=== PATIENT | female | born 1995 | race Hispanic/Latino ===

== ENCOUNTER 2022-12-24 08:50 | Emergency (ER) | payer OTHER, SELFPAY ==
--- NOTE | ~2022-12-24 | XR_ITS ---
EXAMINATION: XR hand RT min 3V INDICATION: Right hand pain TECHNIQUE: Three views of the right hand are obtained. COMPARISON: None available FINDINGS: Bone alignment is normal. There is no fracture. The joint spaces are normal. There is soft tissue swelling of the hand. IMPRESSION: 1. Soft tissue swelling of the hand without acute osseous abnormality. Reviewed, dictated and finalized at location A.
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
[2022-12-24 09:02] VITALS: BP 126/73; PULSE 92; RESP 16; TEMP 37.1; O2SAT 98
== END 2022-12-24 09:28 | disposition home or self-care (01) ==
PROVIDERS: Emergency Provider Nurse Practitioner Family
DX: S63.91XA Sprain of unspecified part of right wrist and hand, initial encounter (principal); S66.911A Strain of unspecified muscle, fascia and tendon at wrist and hand level, right hand, initial encounter; W19.XXXA Unspecified fall, initial encounter
CPT/HCPCS: 73130; 99203; G0463

== ENCOUNTER 2023-08-17 09:32 | Outpatient (CLI) | payer OTHER, SELFPAY ==
[2023-08-17 11:47] LABS: Hematocrit 45.5 % (37.0-47.0); Hemoglobin 14.6 g/dL (12.0-15.0); Mean Corpuscular HGB Conc 32.1 g/dl (32-36); Mean Corpuscular Hemoglobin 27.1 pg (26-34); Mean Corpuscular Volume 84.6 fl (80-100); Mean Platelet Volume 9.8 fl (7.4-10.4); Platelet Count Result 428 k/mm3 (150-375); Red Blood Count 5.38 M/mm3 (4.2-5.4); Red Cell Distribution Width 13.6 % (11.5-14.5); White Blood Count 8.5 K/mm3 (4.5-10.0)
[2023-08-17 11:58] LABS: Alanine Aminotransferase 53 U/L (6-35); Albumin Level 4.1 g/dL (3.5-5.1); Alkaline Phosphatase 68 U/L (38-126); Anion Gap 4 mmol/L (8-16); Aspartate Amino Transferase 59 U/L (14-36); Bilirubin,Total 0.9 mg/dL (0.2-1.3); Blood Urea Nitrogen 12 mg/dL (7-17); Calcium 9.2 mg/dL (8.4-10.2); Carbon Dioxide 28 mmol/L (22-30); Chloride 105 mmol/L (98-107); Cholesterol 208 mg/dL (0-200); Estimated Glomerular Filt Rate > 60; Glucose 92 mg/dL (65-110); HDL Direct 43 mg/dL; Potassium 4.1 mmol/L (3.4-5.0); Sodium 137 mmol/L (137-145); Triglycerides 117 mg/dL (<150)
[2023-08-17 12:09] LABS: LDL Cholesterol Direct 138 mg/dL
[2023-08-17 12:25] LABS: Hemoglobin A1C 5.3 % (<5.7)
== END 2023-08-17 09:33 | disposition home or self-care (01) ==
LOC: ANHGOSHLAB 09:33
PROVIDERS: PCP Family Medicine; Visit Provider Family Medicine
DX: E28.2 Polycystic ovarian syndrome (principal); R73.09 Other abnormal glucose; E66.9 Obesity, unspecified; Z79.899 Other long term (current) drug therapy
CPT/HCPCS: 36415; 80053; 80061; 83036; 84443; 85027

== ENCOUNTER 2024-02-22 09:47 | Outpatient (CLI) | payer OTHER, SELFPAY ==
[2024-02-22 19:39] LABS: Cholesterol 186 mg/dL (0-200); HDL Direct 43 mg/dL; Triglycerides 112 mg/dL (<150)
[2024-02-22 19:49] LABS: Alanine Aminotransferase 29 U/L (6-35); Albumin Level 4.1 g/dL (3.5-5.1); Alkaline Phosphatase 69 U/L (38-126); Anion Gap 11 mmol/L (4-12); Aspartate Amino Transferase 39 U/L (14-36); Bilirubin,Total 0.6 mg/dL (0.2-1.3); Blood Urea Nitrogen 10 mg/dL (7-17); Carbon Dioxide 24 mmol/L (22-30); Chloride 102 mmol/L (98-107); Estimated Glomerular Filt Rate > 60; Glucose 84 mg/dL (65-110); Potassium 3.8 mmol/L (3.4-5.0); Sodium 137 mmol/L (137-145)
[2024-02-22 19:51] LABS: LDL Cholesterol Direct 114 mg/dL
[2024-02-25 08:15] LABS: DHEA-Sulfate 127 mcg/dL (14-349); Prolactin 11.8 ng/mL
[2024-03-01 07:21] LABS: Testosterone Total 38
[2024-03-15 07:52] LABS: Free Insulin 14.5
== END 2024-02-22 09:48 | disposition home or self-care (01) ==
PROVIDERS: Nurse Practitioner; PCP Family Medicine; Visit Provider Internal Medicine Endocrinology, Diabetes & Metabolism
DX: E78.5 Hyperlipidemia, unspecified (principal); E28.2 Polycystic ovarian syndrome; R74.8 Abnormal levels of other serum enzymes; N92.6 Irregular menstruation, unspecified; E66.9 Obesity, unspecified; Z13.1 Encounter for screening for diabetes mellitus; Z83.3 Family history of diabetes mellitus
CPT/HCPCS: 36415; 80053; 80061; 82627; 83036; 83498; 83527; 84146; 84403; 84439; 84443

== ENCOUNTER 2024-02-28 15:15 | Outpatient (CLI) | payer OTHER, SELFPAY ==
[2024-03-01 04:07] LABS: Insulin Level Total 44.4 uIU/mL
[2024-03-14 21:47] LABS: Free Insulin 37.6 uIU/mL (1.5-14.9)
== END 2024-02-28 15:16 | disposition home or self-care (01) ==
LOC: ANHGOSHLAB 15:17
PROVIDERS: PCP Family Medicine; Visit Provider Internal Medicine Endocrinology, Diabetes & Metabolism
DX: R74.8 Abnormal levels of other serum enzymes (principal); E78.5 Hyperlipidemia, unspecified; E66.9 Obesity, unspecified; E28.2 Polycystic ovarian syndrome; Z13.1 Encounter for screening for diabetes mellitus; Z83.3 Family history of diabetes mellitus
CPT/HCPCS: 36415; 82530; 83525; 83527

== ENCOUNTER 2024-03-01 09:25 | Outpatient (CLI) | payer OTHER, SELFPAY ==
[2024-03-01 13:11] LABS: Hematocrit 43.2 % (37.0-47.0); Hemoglobin 13.7 g/dL (12.0-15.0); Mean Corpuscular HGB Conc 31.7 g/dl (32-36); Mean Corpuscular Hemoglobin 27.5 pg (26-34); Mean Corpuscular Volume 86.7 fl (80-100); Mean Platelet Volume 9.8 fl (7.4-10.4); Platelet Count Result 448 k/mm3 (150-375); Red Blood Count 4.98 M/mm3 (4.2-5.4); Red Cell Distribution Width 14.3 % (11.5-14.5)
[2024-03-01 13:36] LABS: Alanine Aminotransferase 25 U/L (6-35); Albumin Level 4.1 g/dL (3.5-5.1); Alkaline Phosphatase 65 U/L (38-126); Anion Gap 10 mmol/L (4-12); Aspartate Amino Transferase 76 U/L (14-36); Bilirubin,Total 0.6 mg/dL (0.2-1.3); Blood Urea Nitrogen 10 mg/dL (7-17); Calcium 8.9 mg/dL (8.4-10.2); Carbon Dioxide 22 mmol/L (22-30); Chloride 106 mmol/L (98-107); Cholesterol 181 mg/dL (0-200); Estimated Glomerular Filt Rate > 60; Glucose 92 mg/dL (65-110); HDL Direct 42 mg/dL; Potassium 4.1 mmol/L (3.4-5.0); Sodium 138 mmol/L (137-145); Triglycerides 99 mg/dL (<150)
[2024-03-01 13:47] LABS: LDL Cholesterol Direct 113 mg/dL
[2024-03-14 08:16] LABS: Cortisol, Saliva 0.03
[2024-03-14 08:17] LABS: Cortisol, Saliva 0.05
== END 2024-03-01 09:26 | disposition home or self-care (01) ==
LOC: ANHGOSHLAB 09:28
PROVIDERS: Internal Medicine Endocrinology, Diabetes & Metabolism; PCP Family Medicine; Visit Provider Family Medicine
DX: R74.8 Abnormal levels of other serum enzymes (principal); E66.9 Obesity, unspecified; E78.5 Hyperlipidemia, unspecified; R73.09 Other abnormal glucose; Z79.899 Other long term (current) drug therapy
CPT/HCPCS: 36415; 80053; 80061; 82530; 84443; 85027

== ENCOUNTER 2024-03-16 08:43 | Outpatient (CLI) | payer OTHER, SELFPAY ==
[2024-03-16 13:57] LABS: Basophils Absolute Auto 0.1 K/mm3 (0.0-0.1); Eosinophils Absolute Auto 0.2 K/mm3 (0-0.3); Eosinophils Percent Auto 1.7 % (0-4.4); Hematocrit 41.9 % (37.0-47.0); Hemoglobin 13.5 g/dL (12.0-15.0); Immature Granulocyte Absolute 0.03 K/mm3 (0.00-0.031); Immature Granulocyte Percent A 0.3 % (0-0.5); Lymphocytes Percent Auto 40.7 % (18.3-44.2); Mean Corpuscular HGB Conc 32.2 g/dl (32-36); Mean Corpuscular Hemoglobin 27.7 pg (26-34); Mean Corpuscular Volume 85.9 fl (80-100); Mean Platelet Volume 9.8 fl (7.4-10.4); Monocytes Absolute Auto 0.5 K/mm3 (0.1-0.6); Monocytes Percent Auto 5.5 % (2.6-8.5); Neutrophils Absolute Auto 4.5 K/mm3 (1.3-6.7); Neutrophils Percent Auto 50.8 % (45.5-73.1); Platelet Count Result 478 k/mm3 (150-375); Red Blood Count 4.88 M/mm3 (4.2-5.4); White Blood Count 8.8 K/mm3 (4.5-10.0)
[2024-03-16 14:35] LABS: Alanine Aminotransferase 30 U/L (6-35); Albumin Level 4.1 g/dL (3.5-5.1); Alkaline Phosphatase 71 U/L (38-126); Aspartate Amino Transferase 129 U/L (14-36); Bilirubin,Total 0.7 mg/dL (0.2-1.3)
== END 2024-03-16 08:44 | disposition home or self-care (01) ==
LOC: ANHGOSHLAB 08:45
PROVIDERS: PCP Family Medicine; Visit Provider Family Medicine
DX: D72.829 Elevated white blood cell count, unspecified (principal); R74.8 Abnormal levels of other serum enzymes; R79.89 Other specified abnormal findings of blood chemistry
CPT/HCPCS: 36415; 80076; 85025

== ENCOUNTER 2024-03-25 09:15 | Outpatient (CLI) | payer OTHER, SELFPAY ==
--- NOTE | ~2024-03-25 | US_ITS ---
EXAMINATION: US right upper quadrant DATE: 03/25/2024 09:44 INDICATION: Elevated liver function tests TECHNIQUE: Multiple grayscale and Doppler ultrasound images of the abdomen were obtained. COMPARISON: None FINDINGS: Visualized portion of the partially obscured pancreas appear normal. Liver has normal contour, with a smooth surface. There is increased parenchymal echogenicity and coarsened echotexture consistent wit h diffuse hepatic steatosis. No liver lesion identified. No intrahepatic biliary duct dilation suspe cted. Portal venous flow was seen in the hepatopetal, normal direction and has normal Doppler wavefor m. The gallbladder is normal in appearance. There is no cholelithiasis. The common bile duct measure s 4 mm, which is normal. Sonographic Otero sign was reported as negative by the sleeping room cleaner. Visuali zed portion of the proximal inferior vena cava is normal. Visualized portion of the right kidney demo nstrates normal contour and echogenicity with no hydronephrosis. IMPRESSION: 1. Diffuse hepatic steatosis. Reviewed, dictated and finalized at location A.
== END 2024-03-25 09:16 | disposition home or self-care (01) ==
PROVIDERS: PCP Family Medicine; Visit Provider Family Medicine
DX: K76.0 Fatty (change of) liver, not elsewhere classified (principal); R74.8 Abnormal levels of other serum enzymes
CPT/HCPCS: 76705

== ENCOUNTER 2024-08-21 09:56 | Outpatient (CLI) | payer OTHER, SELFPAY ==
--- OUTSIDE RECORDS SUMMARY | 2024-08-21 10:41 | XMS_ITS | Clinical Summary ---
Author Organization [facility] Address [address] [place] [id number] Care Team Providers Care Recycling Or Rubbish Collector Name Role Phone Bruna Nguyen DO Primary Care Provider +1- [phone] Allergies Active Allergy Reactions Criticality Noted Date Comments Cat Dander Shortness of breath,Itching High 08/15/19 25 Dog Dander Shortness of breath,Itching High 08/15/19 25 Penicillin G Rash Medium 08/15/2024 Medications Zepbound 15 mg/0.5 mL pen injector ADMINISTER 15 MG UNDER THE SKIN WEEKLY 4 Active fexofenadine (SANDOR) 180 mg tablet Take 1 tablet (180 mg total) by mouth daily Active Active Problems Problem Noted Date Diagnosed Date PCOS (polycystic ovarian syndrome) 08/15/2024 Class 1 obesity due to exces s calories without serious comorbidity with body mass index (BMI) of 34.0 to 34.9 in adult 08/15/2024 Encounters Date Type Department Care Team Description 08/15/2024 3:00 PM DEPARTMENT SPECIALIST Office Visit [facility] Endocrinology Metabolism and Lipid [address] [place] [address] Medical Office Building [address], [address] [place] [address] Jackie Osorio MD PCOS (polycystic ovarian syndrome) (Primary Dx); Class 1 obesity due to excess calories without serious comorbidity with body mass index (BMI) of 34.0 to 34.9 in adult from Last 3 Months Social History Tobacco Use Types Packs/Day Years Used Date Smoking Tobacco: Never Smokeless Tobacco: Never Tobacco Cessation:Counseling Given: Not Answered AUDIT-C Answer Date Recorded Q1: How often do you have a drink containing alc ohol? 2-4 times a month 08/15/2024 Q2: How many drinks containi ng alcohol do you have on a typical day when you are drinking? 1 or 2 08/15/2024 Q3: How often do you have si x or more drinks on one occasion? Never 08/15/2024 Comments Unknown Sex and Gender Information Value Date Recorded Sex Assigned at Not on file Legal Sex Female 12:18 PM CDT Gender Identity Not on file Sexual Orientation Not on file Obstetrics History Last Filed Vital Signs Vital Sign Reading Time Taken Comments Blood Pressure 115/78 08/15/2024 2:52 PM DEPARTMENT SPECIALIST Pulse 113 08/15/2024 2:52 PM DEPARTMENT SPECIALIST Temperature - - Respiratory Rate - - Oxygen Saturation - - Inhaled Oxygen Concentration - - Weight 76.7 kg (169 lb 3.2 oz) 08/15/2024 2:52 P M DEPARTMENT SPECIALIST Height 149.9 cm (4' 11 ) 08/15/2024 2:52 PM DEPARTMENT SPECIALIST Body Mass Index 34.17 08/15/2024 2:52 PM DEPARTMENT SPECIALIST Plan of Treatment Health Maintenance Due Date Last Done Comments Cervical Cancer Screening 1997 Depression Screening 1997 Hepatitis C Screening 1997 DTaP/Tdap/Td Vaccine (1 - Tdap) 2008 Varicella Vaccines (1 of 2 - 13+ 2-dose series) 2010 Hepatitis B Screening 2015 Regular Well Visit/Exam 18-64 2015 Influenza Vaccine (#1) 2024 HPV Vaccines Aged Out No longer eligi ble based on patient's age to complete this topic Pneumococcal vaccine <65 Aged Out No longer eligible based on patient's age to complete this topic Insurance Member Subscriber Plan / Payer (Ef fective 2023-Present) Name:Cara Shepard Relation to Subscriber:Spouse Name:BELINDA SHEPARD Date of :1997 (Home) Address: [address] [place] [address] [place] [id number] Payer ID:[id number] (NAIC) Type:[facility] HMO/PPO Address: [facility] [address] [place] [address] Care Teams Recycling Or Rubbish Collector Relationship Specialty Start Date End Date Bruna Nguyen DO [facility] [address] SALAZAR [address] [place] [id number] PCP - General Family Medicine 08/15/24
--- OUTSIDE RECORDS SUMMARY | 2024-08-21 10:41 | XMS_ITS | Referral Summary ---
Author Organization [facility] Address [address] [place] [phone] Care Team Providers Care Senior Compliance Analyst Name Role Phone Bruna Nguyen DO Primary Care Provider +1- [phone] Encounters Date Type Department Care Team Description 08/15/2024 3:00 PM YEAST DISTILLER Office Visit [facility] Endocrinology Metabolism and Lipid [facility] Medical Office Building [address], [address] [place] [address] Jackie Osorio MD PCOS (polycystic ovarian syndrome) (Primary Dx); Class 1 obesity due to excess calories without serious comorbidity with body mass index (BMI) of 34.0 to 34.9 in adult from Last 3 Months Allergies Active Allergy Reactions Criticality Noted Date [...] of 34.0 to 34.9 in adult 08/15/2024 Social History Tobacco Use Types Packs/Day Years [...] on file Sexual Orientation Not on file Last Filed Vital Signs Vital Sign Reading Time Taken Comments Blood Pressure 115/78 08/15/2024 2:52 PM YEAST DISTILLER Pulse 113 08/15/2024 2:52 PM YEAST DISTILLER Temperature - - Respiratory Rate - - Oxygen Saturation - - Inhaled Oxygen Concentration - - Weight 76.7 kg (169 lb 3.2 oz) 08/15/2024 2:52 P M YEAST DISTILLER Height 149.9 cm (4' 11 ) 08/15/2024 2:52 PM YEAST DISTILLER Body Mass Index 34.17 08/15/2024 2:52 PM YEAST DISTILLER Plan of Treatment Not on file Insurance [facility] CHOICE PLUS Care Teams Senior Compliance Analyst Relationship Specialty Start Date End Date Bruna Nguyen DO [address] [place] [address] DR SALAZAR [address] [place] [id number] PCP - General Family Medicine 08/15/24
[2024-08-21 12:59] LABS: Hematocrit 44.4 % (37.0-47.0); Hemoglobin 14.3 g/dL (12.0-15.0); Mean Corpuscular HGB Conc 32.2 g/dl (32-36); Mean Corpuscular Hemoglobin 27.5 pg (26-34); Mean Corpuscular Volume 85.4 fl (80-100); Mean Platelet Volume 10.2 fl (7.4-10.4); Platelet Count Result 462 k/mm3 (150-375); Red Cell Distribution Width 13.8 % (11.5-14.5); White Blood Count 9.1 K/mm3 (4.5-10.0)
[2024-08-21 15:14] LABS: Alanine Aminotransferase 30 U/L (6-35); Albumin Level 4.1 g/dL (3.5-5.1); Alkaline Phosphatase 61 U/L (38-126); Anion Gap 11 mmol/L (4-12); Aspartate Amino Transferase 64 U/L (14-36); Bilirubin,Total 0.5 mg/dL (0.2-1.3); Blood Urea Nitrogen 13 mg/dL (7-17); Calcium 9.1 mg/dL (8.4-10.2); Carbon Dioxide 24 mmol/L (22-30); Chloride 106 mmol/L (98-107); Cholesterol 202 mg/dL (0-200); Estimated Glomerular Filt Rate > 60; Glucose 84 mg/dL (65-110); HDL Direct 48 mg/dL; Potassium 4.3 mmol/L (3.4-5.0); Sodium 141 mmol/L (137-145); Triglycerides 77 mg/dL (<150)
[2024-08-21 15:25] LABS: LDL Cholesterol Direct 115 mg/dL
== END 2024-08-21 09:57 | disposition home or self-care (01) ==
LOC: ANHGOSHLAB 09:56
PROVIDERS: PCP Family Medicine; Visit Provider Family Medicine
DX: E78.5 Hyperlipidemia, unspecified (principal); R73.09 Other abnormal glucose; E66.9 Obesity, unspecified; R74.8 Abnormal levels of other serum enzymes; Z79.899 Other long term (current) drug therapy
CPT/HCPCS: 36415; 80053; 80061; 84443; 85027

== ENCOUNTER 2024-10-10 09:41 | Outpatient (CLI) | payer OTHER, SELFPAY ==
--- OUTSIDE RECORDS SUMMARY | 2024-10-10 10:28 | XMS_ITS | Referral Summary ---
Author Organization [facility] Address [address] [place] [id number] Care Team Providers Care Manager Of Information Name Role Phone Bruna Nguyen DO Primary Care Provider +1- [phone] Encounters Date Type Department Care Team Description 08/15/2024 3:00 PM MARKETING TECHNOLOGY COORDINATOR Office Visit [facility] Endocrinology Metabolism and Lipid [facility]4 [facility] Medical Office Building [address], [address] [place] [address] Jackie Osorio MD PCOS (polycystic [...] Comments Blood Pressure 115/78 08/15/2024 2:52 PM MARKETING TECHNOLOGY COORDINATOR Pulse 113 08/15/2024 2:52 PM MARKETING TECHNOLOGY COORDINATOR Temperature - - Respiratory Rate - - Oxygen Saturation - - Inhaled Oxygen Concentration - - Weight 76.7 kg (169 lb 3.2 oz) 08/15/2024 2:52 P M MARKETING TECHNOLOGY COORDINATOR Height 149.9 cm (4' 11 ) 08/15/2024 2:52 PM MARKETING TECHNOLOGY COORDINATOR Body Mass Index 34.17 08/15/2024 2:52 PM MARKETING TECHNOLOGY COORDINATOR Plan of Treatment Not on file Insurance [facility] [place] [address] Care Teams Manager Of Information Relationship Specialty Start Date End Date Bruna Nguyen DO [address] [place] [address] DR SALAZAR [address] [place] [id number] PCP - General Family Medicine 08/15/24
--- OUTSIDE RECORDS SUMMARY | 2024-10-10 10:28 | XMS_ITS | Clinical Summary ---
Author Organization [facility] Address [address] [place] [phone] Care Team Providers Care Urban Gardening Specialist Name Role Phone Bruna Nguyen DO Primary Care Provider +1- [phone] Allergies Active Allergy Reactions Criticality Noted Date [...] Department Care Team Description 08/15/2024 3:00 PM HEEL ATTACHER WOOD Office Visit [facility] Endocrinology Metabolism and Lipid [address] [place] [address] Medical Office Building [address], [address] [place] [address] Jackie Osorio MD PCOS (polycystic [...] Comments Blood Pressure 115/78 08/15/2024 2:52 PM HEEL ATTACHER WOOD Pulse 113 08/15/2024 2:52 PM HEEL ATTACHER WOOD Temperature - - Respiratory Rate - - Oxygen Saturation - - Inhaled Oxygen Concentration - - Weight 76.7 kg (169 lb 3.2 oz) 08/15/2024 2:52 P M HEEL ATTACHER WOOD Height 149.9 cm (4' 11 ) 08/15/2024 2:52 PM HEEL ATTACHER WOOD Body Mass Index 34.17 08/15/2024 2:52 PM HEEL ATTACHER WOOD Plan of Treatment Health Maintenance Due Date [...] Name:BELINDA SHEPARD Date of :1995 (Home) Address: [address] [place] [address] [place] [address] Payer ID:[id number] (NAIC) Type:[facility] HMO/PPO Address: [facility] [address] [place] [address] Care Teams Urban Gardening Specialist Relationship Specialty Start Date End Date Bruna Nguyen DO [facility]7 [facility] [address] SALAZAR [address] [place] [id number] PCP - General Family Medicine 08/15/24
[2024-10-10 14:26] LABS: SPREG INTERNAL CONTROL Positive; Serum Qual hCG Negative
== END 2024-10-10 09:42 | disposition home or self-care (01) ==
LOC: ANHGOSHLAB 09:42
PROVIDERS: PCP Family Medicine; Visit Provider Family Medicine
DX: N92.6 Irregular menstruation, unspecified (principal)
CPT/HCPCS: 36415; 84703

== ENCOUNTER 2025-02-12 10:03 | Outpatient (CLI) | payer OTHER, SELFPAY ==
--- OUTSIDE RECORDS SUMMARY | 2025-02-12 10:23 | XMS_ITS | Referral Summary ---
Author Organization [facility] Address [address] [place] [phone] Care Team Providers Care Gag Writer Name Role Phone Bruna Nguyen DO Primary Care Provider +1- [phone] Allergies Active Allergy Reactions Criticality Noted Date [...] Comments Blood Pressure 115/78 08/15/2024 2:52 PM BILL PEDDLER Pulse 113 08/15/2024 2:52 PM BILL PEDDLER Temperature - - Respiratory Rate - - Oxygen Saturation - - Inhaled Oxygen Concentration - - Weight 76.7 kg (169 lb 3.2 oz) 08/15/2024 2:52 P M BILL PEDDLER Height 149.9 cm (4' 11) 08/15/2024 2:52 PM BILL PEDDLER Body Mass Index 34.17 08/15/2024 2:52 PM BILL PEDDLER Plan of Treatment Not on file Insurance [facility] CHOICE PLUS Care Teams Gag Writer Relationship Specialty Start Date End Date Bruna Nguyen DO [facility]7 [facility] [address] [address] PCP - General Family Medicine 08/15/24
--- OUTSIDE RECORDS SUMMARY | 2025-02-12 10:23 | XMS_ITS | Clinical Summary ---
Author Organization [facility] Address [address] [place] [phone] Care Team Providers Care Porter Used Car Lot Name Role Phone Bruna Nguyen DO Primary Care Provider +1- [phone] Allergies Active Allergy Reactions Criticality Noted Date [...] Comments Blood Pressure 115/78 08/15/2024 2:52 PM RESIN REMOVER Pulse 113 08/15/2024 2:52 PM RESIN REMOVER Temperature - - Respiratory Rate - - Oxygen Saturation - - Inhaled Oxygen Concentration - - Weight 76.7 kg (169 lb 3.2 oz) 08/15/2024 2:52 P M RESIN REMOVER Height 149.9 cm (4' 11) 08/15/2024 2:52 PM RESIN REMOVER Body Mass Index 34.17 08/15/2024 2:52 PM RESIN REMOVER Plan of Treatment Health Maintenance Due Date Last Done Comments Cervical Cancer Screening 1997 Depression Screening 1997 Hepatitis C Screening 1997 DTaP/Tdap/Td Vaccine (1 - Tdap) 2008 Varicella Vaccines (1 of 2 - 13+ 2-dose series) 2010 Hepatitis B Screening 2015 Regular Well Visit/Exam 18-64 2015 HPV Vaccines (1 - 3-dose SCD M series) 2024 Influenza Vaccine (#1) 2025 Pneumococcal vaccine <65 Aged Out No longer eligible based on patient's age to complete this topic Insurance [facility] CHOICE PLUS Member Subscriber Plan / Payer (Ef fective 2023-Present) Name:Cara Shepard Relation to Subscriber:Spouse Name:BELINDA SHEPARD Date of :1997 (Home) Address: [address] [place] [address] [place] [id number] Payer ID:[id number] (NAIC) Type:[facility] HMO/PPO Address: [facility] [address] [place] [address] Care Teams Porter Used Car Lot Relationship Specialty Start Date End Date Bruna Nguyen DO [address] [place] [address] [address] PCP - General Family Medicine 08/15/24
[2025-02-12 15:11] LABS: Hematocrit 46.1 % (37.0-47.0); Hemoglobin 14.8 g/dL (12.0-15.0); Mean Corpuscular HGB Conc 32.1 g/dl (32-36); Mean Corpuscular Hemoglobin 27.6 pg (26-34); Mean Corpuscular Volume 85.8 fl (80-100); Platelet Count Result 476 k/mm3 (150-375); Red Blood Count 5.37 M/mm3 (4.2-5.4); White Blood Count 8.2 K/mm3 (4.5-10.0)
[2025-02-12 15:22] LABS: Alanine Aminotransferase 34 U/L (6-35); Albumin Level 4.3 g/dL (3.5-5.1); Alkaline Phosphatase 63 U/L (38-126); Anion Gap 5 mmol/L (4-12); Aspartate Amino Transferase 49 U/L (14-36); Bilirubin,Total 0.9 mg/dL (0.2-1.3); Blood Urea Nitrogen 12 mg/dL (7-17); Calcium 9.1 mg/dL (8.4-10.2); Carbon Dioxide 26 mmol/L (22-30); Chloride 103 mmol/L (98-107); Cholesterol 234 mg/dL (0-200); Estimated Glomerular Filt Rate > 60; Glucose 77 mg/dL (65-110); HDL Direct 45 mg/dL; Potassium 4.2 mmol/L (3.4-5.0); Sodium 134 mmol/L (137-145); Total Protein 9.1 g/dL (6.3-8.2); Triglycerides 111 mg/dL (<150)
[2025-02-12 16:00] LABS: Thyroid Stimulating Hormone 1.750 uIU/mL (0.465-4.680)
== END 2025-02-12 10:04 | disposition home or self-care (01) ==
LOC: ANHGOSHLAB 10:03
PROVIDERS: PCP Family Medicine; Visit Provider Family Medicine
DX: E78.5 Hyperlipidemia, unspecified (principal); R73.09 Other abnormal glucose; E66.9 Obesity, unspecified; Z79.899 Other long term (current) drug therapy
CPT/HCPCS: 36415; 80053; 80061; 84443; 85027